=== PATIENT | male | born 1995 | race Caucasian/White ===

== ENCOUNTER 2017-02-23 05:04 | Emergency (ER) | payer OTHER ==
[~2017-02-23] VITALS: Ht 167.6 cm; Wt 70.0 kg
[2017-02-23 05:05] VITALS: BP 152/74; PULSE 106; RESP 18; TEMP 98.7; O2SAT 99
[2017-02-23] MEDS ORDERED: GENTAMICIN 80 MG PREMIX 100 ML ONE ×2 (05:27→13:49)
[2017-02-23] MEDS ORDERED: LIDOCAINE 2% JELLY 5 ML TUBE TOPICAL ONE (05:30)
[2017-02-23] MEDS ORDERED: LIDOCAINE 2% JELLY 30 ML TUBE TOPICAL ONE (05:30)
[2017-02-23] MEDS ORDERED: LIDOCAINE 1%/EPINEPHrine 1:100,000 SOLN 20 ML VIAL INFIL ONE (05:30)
[2017-02-23] MEDS ORDERED: TETANUS/DIPHTHERIA TOXOID ADULT 0.5 ML VIAL IM ONE (05:30)
[2017-02-23] MEDS ORDERED: ceFAZolin 2 GM PREMIX 50 ML IV ONE (05:30)
[2017-02-23] MEDS ORDERED: GENTAMICIN INJ 80 MG in SODIUM CHLORIDE 0.9% INJ 100 ML IV ONE (05:30)
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
[2017-02-23] MEDS ORDERED: NICOTINE 7 MG/24 HR PATCH T-DERMAL ONE (07:45)
[2017-02-23] MEDS ORDERED: VANCOMYCIN HCL 1000 MG VIAL ONE (07:49)
[2017-02-23] MEDS ORDERED: GENTAMICIN SULFATE 80 MG/2 ML VIAL ONE (07:49)
[2017-02-23] MEDS ORDERED: ceFAZolin INJ 1,000 MG VIAL ONE (07:49)
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
[2017-02-23] MEDS ORDERED: NORC5TAB PO ×2 (08:03→10:38)
[2017-02-23 08:12] VITALS: BP 127/61; PULSE 90; RESP 15; O2SAT 99
[2017-02-23 08:13] VITALS: BP 127/61
[2017-02-23] MEDS ORDERED: BACITRACIN TOP OINT 15 GM TUBE ONE (09:30)
[2017-02-23] MEDS ORDERED: ACETAMINOPHEN 1000 MG/100 ML 100 ML IV ONE (09:48)
[2017-02-23] MEDS ORDERED: LACTATED RINGER'S 1000 ML IV PRN (10:15)
[2017-02-23] MEDS ORDERED: POVIDONE IODINE 5% (ANTISEPSIS KIT) 4 APPLICATIONS EACH NARE PRN (10:15)
[2017-02-23] MEDS ORDERED: CHLORHEXIDINE GLUCONATE 2 % 1 PACK (2 CLOTHS) TOPICAL PRN (10:15)
[2017-02-23] MEDS ORDERED: SODIUM CHLORID 0.9% 500 ML IV PRN (10:15)
[2017-02-23] MEDS ORDERED: METOPROLOL TARTRATE 25 MG TAB PO PRN (10:15)
[2017-02-23] MEDS ORDERED: LACTATED RINGER'S 1000 ML INJ 1,000 ML IV SCH (10:33)
[2017-02-23] MEDS ORDERED: BACT800T5 PO (10:38)
--- NOTE | 2017-02-23 10:41 | PD.OP ---
cc: Mariusz Mayfield MD Operative Report Date of Surgery: Feb 23, 2017 Preoperative Diagnosis: Complex deep laceration right knee Postoperative Diagnosis: Procedure: Irrigation and debridement of right knee and patella, complex closure 5 cm laceration Surgeon: Mariusz Mayfield Winding Machine Operator(s): BENEDICT Cruz PA-C The surgical procedure was assisted by my physician elementary assistant principal. My P.A. presence was necessary throughout this case for the manipulation and positioning of the surgical extremity. My P.A. was assisting me throughout the duration of this procedure. The skill set of a physician elementary assistant principal was medically necessary to complete this procedure. During the surgical case the shampoo technician was working at the back table and the physician elementary assistant principal was directly assisting me. Operation and Findings: Dewayne was seen and evaluated preoperatively. He had a deep laceration right knee. Informed consent was obtained. Operative site was marked. His breath operating room. He was given IV sedation and general anesthesia. He received IV antibiotic's. Timeout Procedure was performed. Right leg was prepped with alcohol followed Hibiclens and draped usual sterile fashion. Procedure began with debridement of the wound. Skin subcutaneous tissue and fascia were sharply debrided with rongeur and scalpel. There was significant visible contamination. All foreign material was carefully removed. Bursa was also excised. The inferior aspect of the patella was exposed. Curettes were used to debride bone. After thorough debridement of all soft tissue and bone the wound was thoroughly irrigated with pulsatile lavage. Wound was clean this time. Next attention was turned to closure. Skin edges were sharply debrided with a scalpel to allow for closure. Subcutaneous tissues reapproximated with 3-0 PDS. Skin was closed with 3-0 nylon. A combination of vertical mattress and retention sutures were utilized. The laceration was completely closed with minimal skin tension. Sterile dressings were applied. Patient transferred to recovery room in stable condition. Mariusz Mayfield MD Feb 23, 2017 10:41
[2017-02-23] MEDS ORDERED: MORPHINE SULFATE 4 MG/ML INJ IV PUSH PRN (10:45)
[2017-02-23] MEDS ORDERED: ACETAMINOPHEN/HYDROcodone 325 MG/5 MG TAB PO PRN (10:45)
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
[2017-02-23] MEDS ORDERED: DEXAMETHASONE SOD PHOS 4 MG/ML VIAL IV ONE (12:00)
[2017-02-23] MEDS ORDERED: MIDAZOLAM HCL 2 MG/2 ML VIAL IV ONE (12:00)
[2017-02-23] MEDS ORDERED: PROPOFOL 200 MG/20 ML AMP IV ONE (12:00)
[2017-02-23] MEDS ORDERED: ONDANSETRON HCL 4 MG/2 ML VIAL IV PUSH ONE (12:00)
[2017-02-23] MEDS ORDERED: LIDOCAINE HCL 1% PF 5 ML SYRINGE OTHER ONE (12:00)
[2017-02-23] MEDS ORDERED: DO NOT ADM ANY ANTICOAGULANT DRUGS PRN (12:45)
[2017-02-23] MEDS ORDERED: ceFAZolin 2 GM PREMIX 50 ML IV SCH (14:00)
[2017-02-23 15:09] VITALS: BP 137/72; PULSE 100; RESP 18; TEMP 99.3; O2SAT 99
[2017-02-23] MEDS ORDERED: GENTAMICIN 80 MG PREMIX 100 ML IV SCH (18:00)
== END 2017-02-23 15:09 | disposition home or self-care (01) ==
LOC: NEPD 05:04
DX: S81.021A Laceration with foreign body, right knee, initial encounter (principal); S40.211A Abrasion of right shoulder, initial encounter; V28.4XXA Motorcycle driver injured in noncollision transport accident in traffic accident, initial encounter; Y92.410 Unspecified street and highway as the place of occurrence of the external cause; Z23 Encounter for immunization; Z72.0 Tobacco use
CPT/HCPCS: 11044; 13121; 73564; 90471; 90714; 96365; 96367; 99284; J0131; J0690; J1100; J1580; J2250; J2405; J3010; J3370; J7120